=== PATIENT | female | born 1955 | race Caucasian/White ===

== ENCOUNTER 2022-05-28 09:16 | Day surgery (SDC) | payer MEDICARE, OTHER ==
[2022-05-27 09:09] VITALS: BMI 35.6
[2022-05-28] MEDS ORDERED: Fentanyl 100 MCG/2 ML VIAL ONE ×2 (09:59→13:10)
[2022-05-28] MEDS ORDERED: PROPOFOL 20 ML ONE (09:59)
[2022-05-28] MEDS ORDERED: Dexamethasone 20 MG/5 ML VIAL ONE (10:00)
[2022-05-28] MEDS ORDERED: Ondansetron PF 4 MG/2 ML Vial ONE ×2 (10:00→11:15)
[2022-05-28] MEDS ORDERED: Neomycin-Polymyxin 1 ML AMP ONE (10:06)
[2022-05-28] MEDS ORDERED: Bupivacaine PF 0.5% 30 ML VIAL ONE (10:06)
[2022-05-28] MEDS ORDERED: Clindamycin/D5W 900 mg/50 ml Premix Bag ONE (10:49)
[2022-05-28] MEDS ORDERED: Dexamethasone 4 mg/ml Vial ONE (11:15)
[2022-05-28] MEDS ORDERED: ePHEDrine Sulfate 50 MG/10 ML VIAL ONE (11:30)
[2022-05-28] MEDS ORDERED: HYDROcodone/Acetaminophen 5/325 mg Tablet ONE (13:59)
== END 2022-05-28 15:00 | disposition home or self-care (01) ==
LOC: CSHSDC 09:16
PROVIDERS: ATTEND Podiatrist Foot & Ankle Surgery
PROC: 0SGP0JZ Fusion of Right Toe Phalangeal Joint with Synthetic Substitute, Open Approach (ICD-10-PCS; principal; 2022-05-28)
PROC: 0SGK0JZ Fusion of Right Tarsometatarsal Joint with Synthetic Substitute, Open Approach (ICD-10-PCS; 2022-05-28)
DX: M20.11 Hallux valgus (acquired), right foot (principal); M20.41 Other hammer toe(s) (acquired), right foot; I10 Essential (primary) hypertension; Z86.73 Personal history of transient ischemic attack (TIA), and cerebral infarction without residual deficits; Z79.899 Other long term (current) drug therapy; Z79.82 Long term (current) use of aspirin; Z79.02 Long term (current) use of antithrombotics/antiplatelets; E78.2 Mixed hyperlipidemia; I51.7 Cardiomegaly
CPT/HCPCS: 28297; 73620; C1713 ×4; C1769; C1776 ×2; J1100; J2405; J2704; J3010; J3490; S0020